=== PATIENT | female | born 1960 | race Caucasian/White ===

== ENCOUNTER 2019-08-04 06:43 | Day surgery (SDC) | payer OTHER ==
[2019-08-04] MEDS: LACTATED RINGER'S 1,000 ML IV (08:11)
[2019-08-04] MEDS ORDERED: MIDAZOLAM 1 MG/ML 2 ML INJ (09:14)
[2019-08-04] MEDS ORDERED: LIDOCAINE 2% (SDV) 5 ML INJ (09:24)
[2019-08-04] MEDS ORDERED: CEFAZOLIN 1 GM INJ (09:24)
[2019-08-04] MEDS ORDERED: PROPOFOL 20 ML (09:24)
[2019-08-04] MEDS ORDERED: ROCURONIUM 50 MG INJ (09:24)
[2019-08-04] MEDS ORDERED: SUCCINYLCHOLINE CHLORIDE 100 MG/5 ML SYG IV (09:24)
[2019-08-04] MEDS ORDERED: ONDANSETRON 4 MG INJ ×2 (09:32→10:37)
[2019-08-04] MEDS ORDERED: FAMOTIDINE 20 MG INJ (09:32)
[2019-08-04] MEDS ORDERED: DEXAMETHASONE 4 MG/ML 5 ML INJ (09:32)
[2019-08-04] MEDS: LIDOCAINE 1%/EPI 30 ML INJ (09:41)
[2019-08-04] MEDS ORDERED: SUGAMMADEX SODIUM 200 MG/2 ML VIAL IV ×2 (10:09→10:14)
[2019-08-04] MEDS ORDERED: OXYCODONE/ACETAMINOPHEN (5/325) TAB PO (11:00)
[2019-08-04] MEDS ORDERED: HYDROmorphONE 1 MG/5 ML IV SYRINGE IV ×3 (11:00→11:05)
[2019-08-04] MEDS ORDERED: PROCHLORPERAZINE 10 MG INJ IV (11:00)
[2019-08-04] MEDS ORDERED: MEPERIDINE 25 MG INJ IV (11:00)
[2019-08-04] MEDS ORDERED: DIPHENHYDRAMINE 50 MG INJ IV (11:00)
[2019-08-04] MEDS ORDERED: FENTAnyl 50 MCG/ML VIAL IV (11:00)
[2019-08-04] MEDS: HYDROmorphONE 1 MG/5 ML IV SYRINGE IV (11:17)
[2019-08-04] MEDS: ONDANSETRON 4 MG INJ IV (11:17)
== END 2019-08-04 12:55 | disposition home or self-care (01) ==
LOC: SDS 06:43
DX: E21.0 Primary hyperparathyroidism (principal); E66.9 Obesity, unspecified
CPT/HCPCS: 60500; 88305; 88331